=== PATIENT | male | born 1985 | race Caucasian/White ===

== ENCOUNTER 2019-01-30 14:59 | Emergency (ER) | payer MEDICAID ==
[~2019-01-30] VITALS: Ht 177.8 cm; Wt 90.9 kg
[2019-01-30 14:59] VITALS: BP 144/102
[2019-01-30] MEDS ORDERED: IBUPROFEN 600 MG TABLET PO ONE (16:15)
[2019-01-30] MEDS ORDERED: PENICILLIN V POTASSIUM 500 MG TABLET PO ONE (16:15)
== END 2019-01-30 17:13 | disposition home or self-care (01) ==
LOC: EMS 15:02
DX: K02.9 Dental caries, unspecified (principal)